=== PATIENT | female | born 1995 | race Caucasian/White ===

== ENCOUNTER 2018-02-15 18:02 | Emergency (ER) | payer OTHER ==
[~2018-02-15] VITALS: Ht 175.3 cm; Wt 77.1 kg
[~2018-02-15 18:02] MED LIST: CLIN-223; TYLENOL
[2018-02-15 18:04] VITALS: BP 130/91
--- NOTE | 2018-02-15 18:11 | NUR ---
Patient ambulated to bed 3 with family. RN evaluating patient at bedside.
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
[2018-02-15] MEDS ORDERED: IBUPROFEN 800 MG TAB PO ONE (18:30)
--- NOTE | 2018-02-15 19:00 | NUR ---
pt taken to x-ray via wheelchair
--- NOTE | 2018-02-15 19:13 | NUR ---
Pt report given to Khushbu TAYLOR. Transfer of care at this time.
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
--- NOTE | 2018-02-15 19:32 | NUR ---
PT TAKEN TO X-RAY VIA WC.
--- NOTE | 2018-02-15 20:00 | NUR ---
PT CAME BACK FROM X-RAY VIA WC AND PT ABLE TO TRANSFER FROM WC TO BED WITHOUT DIFFICULTY.
--- NOTE | 2018-02-15 20:10 | NUR ---
DR. WILKES AT BED SIDE.
[2018-02-15 20:33] VITALS: BP 128/88
== END 2018-02-15 20:33 | disposition home or self-care (01) ==
LOC: MED 18:02
DX: S20.212A Contusion of left front wall of thorax, initial encounter (principal); S80.12XA Contusion of left lower leg, initial encounter; S80.11XA Contusion of right lower leg, initial encounter; V43.52XA Car driver injured in collision with other type car in traffic accident, initial encounter; Y93.89 Activity, other specified; Y92.413 State road as the place of occurrence of the external cause; Y99.8 Other external cause status
CPT/HCPCS: 71045; 73502; 73590; 81002; 81025; 99284

== ENCOUNTER 2018-09-06 18:26 | Emergency (ER) | payer OTHER ==
[~2018-09-06] VITALS: Ht 175.3 cm; Wt 77.1 kg
[2018-09-06 18:28] VITALS: BP 143/90
[2018-09-06 19:10] VITALS: BP 143/90
[2018-09-06] MEDS ORDERED: KETOROLAC 60 MG/2 ML VIAL IM ONE (19:15)
== END 2018-09-06 19:10 | disposition home or self-care (01) ==
LOC: MED 18:26
DX: N39.0 Urinary tract infection, site not specified (principal); Z79.2 Long term (current) use of antibiotics; Z79.1 Long term (current) use of non-steroidal anti-inflammatories (NSAID)
CPT/HCPCS: 81002; 81025; 99283

== ENCOUNTER 2018-09-08 16:24 | Emergency (ER) | payer OTHER ==
[~2018-09-08] VITALS: Ht 175.3 cm; Wt 90.0 kg
[2018-09-08 17:01] VITALS: BP 134/82
[2018-09-08] MEDS ORDERED: cefTRIAXone 2,000 MG VIAL ONE (19:08)
[2018-09-08 19:11] LABS: APPEARANCE,URINE CLEAR (CLEAR); BILIRUBIN,URINE SMALL (NEGATIVE); BLOOD, URINE TRACE-L (NEGATIVE); COLOR,URINE RED (YELLOW); LEUKOCYTE ESTERASE ,URINE TRACE (NEGATIVE); NITRITE, URINE POSITIVE (NEGATIVE); PH,URINE 5.5 (5.0-9.0); UGLUCOSE 1+ (NEGATIVE)
[2018-09-08] MEDS: cefTRIAXone 2,000 MG in DEXTROSE 5% 100 ML IV ONE (19:18)
[2018-09-08] MEDS: KETOROLAC 30 MG/ML VIAL IVP ONE (19:18)
[2018-09-08] MEDS: NACL 0.9% 1,000 ML IV SCH (19:29)
[2018-09-08 19:45] LABS: RBC,URINE 0-5 (RARE) /HPF (0-5)
[2018-09-08 19:58] VITALS: BP 130/79
== END 2018-09-08 19:58 | disposition home or self-care (01) ==
LOC: MED 16:24
DX: N39.0 Urinary tract infection, site not specified (principal); Z79.899 Other long term (current) drug therapy; M25.551 Pain in right hip
CPT/HCPCS: 81001; 81025; 87086; 96365; 96375; 99283; J0696; J1885; J7030; J7060

== ENCOUNTER 2019-04-25 18:34 | Emergency (ER) | payer OTHER ==
[~2019-04-25] VITALS: Ht 175.3 cm; Wt 77.1 kg
[2019-04-25 18:41] VITALS: BP 133/78
--- NOTE | 2019-04-25 19:38 | NUR ---
Note ivelisse in EDM - 04/25/19 at 1943 by [email or web address] PT C/O OF SORE THROAT SINCE TODAY. PT STATED "I WAS TAKING DAYQUIL/NIGHTQUIL LAST WEEK AND IT WENT AWAY, BUT TODAY IT IS WORSE" PAIN LEVEL 10/10 WHEN SWALLOWING. PT ALSO HAS DRY COUGH. NO MED HX. SAFETY MEASURES IN PLACE. WAITING FOR ERMD TO EVALUATE PT.
--- NOTE | 2019-04-25 19:43 | NUR ---
PT C/O OF SORE THROAT SINCE TODAY. PT STATED "I WAS TAKING DAYQUIL/NIGHTQUIL LAST WEEK AND IT WENT AWAY, BUT TODAY IT IS WORSE" PAIN LEVEL 10/10 WHEN SWALLOWING. PT ALSO HAS DRY COUGH, NO FEVER. NO MED HX. SAFETY MEASURES IN PLACE. WAITING FOR ERMD TO EVALUATE PT.
[2019-04-25 20:14] VITALS: BP 133/78
--- NOTE | 2019-04-25 20:19 | NUR ---
Patient discharged BY DR. WILKES with v/s stable. Written and verbal after care instructions given and explained. Patient alert, oriented and verbalized understanding of instructions. Ambulatory with steady gait. All questions addressed prior to discharge. ID band removed. Patient advised to follow up with PMD. Rx of AUGMENTIN given. Patient educated on indication of medication including possible reaction and side effects. Opportunity to ask questions provided and answered.
== END 2019-04-25 20:14 | disposition home or self-care (01) ==
LOC: MED 18:34
DX: J02.9 Acute pharyngitis, unspecified (principal); R63.0 Anorexia; Z79.899 Other long term (current) drug therapy
CPT/HCPCS: 99283

== ENCOUNTER 2020-10-15 15:01 | Emergency (ER) | payer OTHER ==
[~2020-10-15] VITALS: Ht 175.3 cm; Wt 117.5 kg
[2020-10-15 15:28] VITALS: BP 154/72
--- NOTE | 2020-10-15 15:30 | NUR ---
PT BEING EVALUATED BY MICHAEL KNOTT IN TRIAGE ROOM.
[2020-10-15 15:42] VITALS: BP 154/72
--- NOTE | 2020-10-15 15:42 | NUR ---
Patient discharged with v/s stable. Written and verbal after care instructions given and explained. Patient alert, oriented and verbalized understanding of instructions. Ambulatory with steady gait. All questions addressed prior to discharge. ID band removed. Patient advised to follow up with PMD. Rx of Prednisone 20mg and Mupirocin 2% given. Patient educated on indication of medication including possible reaction and side effects. Opportunity to ask questions provided and answered.
== END 2020-10-15 15:42 | disposition home or self-care (01) ==
LOC: MED 15:01
DX: J06.9 Acute upper respiratory infection, unspecified (principal); L01.00 Impetigo, unspecified; Z79.899 Other long term (current) drug therapy
CPT/HCPCS: 99283